=== PATIENT | male | born 1960 | race Caucasian/White ===

== ENCOUNTER 2023-05-06 05:41 | Inpatient (IN) | payer MEDICAID ==
[~2023-05-06] VITALS: Ht 177.8 cm; Wt 83.0 kg
[2023-05-06 06:59] LABS: Urine Bacteria NONE SEEN /hpf (None Seen); Urine Blood 3+ /uL (Negative); Urine Clarity HAZY (Clear); Urine Color PINK (Yellow); Urine Protein, UAD 1+ (Negative); Urine Specific Gravity 1.025 (1.001-1.035); Urine WBC 4 /hpf (0 - 3)
[2023-05-06 07:17] LABS: Basophils # (auto) 0 10 ^3/uL (0-0.2); Basophils % (auto) 0.1 % (0.0-2.0); Eosinophils # (auto) 0 10 ^3/uL (0-0.8); Hematocrit 44.1 % (41.0-53.0); Hemoglobin 15.6 g/dL (13.5-17.5); Lymphocytes # (auto) 0.6 10 ^3/uL (0.4-5.4); Lymphocytes % (auto) 6.5 % (10.0-50.0); Mean Corpuscular Hemoglobin 31.4 pg (28.0-32.0); Mean Corpuscular Hgb Conc. 35.3 g/dL (32.0-36.0); Monocytes # (auto) 0.2 10 ^3/uL (0-1.3); Monocytes % (auto) 2.3 % (0.0-12.0); Neutrophils # (auto) 8.6 10 ^3/uL (1.6-8.6); Neutrophils % (auto) 91.1 % (37.0-80.0); Nucleated Red Blood Cells % 0.1 %; Red Blood Cells 4.96 10^6/uL (4.5-5.90); Red Cell Distribution Width 13.6 % (11.8-14.3); White Blood Cell 9.4 10^3/uL (4.4-10.8)
[2023-05-06 07:48] LABS: Alanine Aminotransferase 24 U/L (7-40); Albumin 4.6 g/dL (3.2-4.8); Alkaline Phosphatase 78 U/L (46-116); Anion Gap 6 (5-15); Aspartate Aminotransferase 13 U/L (13-40); BUN/Creatinine Ratio 16.5 (10.0-20.0); Blood Urea Nitrogen 14 mg/dL (9-23); Calcium 9.6 mg/dL (8.7-10.4); Carbon Dioxide 26 mmol/L (20-30); Chloride 103 mmol/L (98-107); Glucose 154 mg/dL (74-106); Lipase 52 U/L (12-53); Potassium 3.9 mmol/L (3.5-5.1); Sodium 135 mmol/L (136-145); Total Protein 7.1 g/dL (5.7-8.2)
[2023-05-06] MEDS ORDERED: KETOROLAC TROMETH 30 MG/ML 1ML VIAL IV ONE (08:30)
[2023-05-06] MEDS ORDERED: SODIUM CHLORIDE 0.9% 1,000 ML IV ONE ×2 (08:30)
[2023-05-06] MEDS ORDERED: KETOROLAC TROMETH 60MG/2ML VIAL ONE (08:55)
[2023-05-06] MEDS ORDERED: TAMSULOSIN HYDROCHLORIDE 0.4 MG CAP PO ONE (09:00)
[2023-05-06] MEDS ORDERED: DOCUSATE SOD 100 MG CAP PO PRN (12:15)
[2023-05-06] MEDS ORDERED: ONDANSETRON HCL 4 MG/2 ML VIAL IV PRN (12:15)
[2023-05-06] MEDS ORDERED: KETOROLAC TROMETH 30 MG/ML 1ML VIAL IV PRN (12:30)
[2023-05-06] MEDS: MORPHINE SULFATE INJ 2 MG/ml SYRG IV PRN ×2 (14:43→21:28)
[2023-05-06] MEDS: metroNIDAZOLE 500MG/100ML 100 ML IV SCH ×2 (14:45→21:27)
[2023-05-06] MEDS ORDERED: DEXTROSE (50%) 50ML SYRG IV PRN (16:15)
[2023-05-06] MEDS: InsuLIN REG 1unit/0.01ml Soln (100units/ml) SC SCH ×2 (17:00→21:28)
[2023-05-06] MEDS: ACCU-CHEK COMFORT CURVE STRIP VI SCH ×2 (17:26→21:28)
[2023-05-06] MEDS: SODIUM CHLORIDE 0.9% 1,000 ML IV SCH ×2 (17:41→20:35)
[2023-05-06] MEDS: TAMSULOSIN HYDROCHLORIDE 0.4 MG CAP PO SCH (17:54)
[2023-05-06] MEDS ORDERED: TAMSULOSIN HYDROCHLORIDE 0.4 MG CAP PO SCH (18:00)
[2023-05-06 18:25] VITALS: RESP 18
[2023-05-07] MEDS: SODIUM CHLORIDE 0.9% 1,000 ML IV SCH ×3 (04:38→23:21)
[2023-05-07 04:58] LABS: Basophils # (auto) 0 10 ^3/uL (0-0.2); Eosinophils # (auto) 0 10 ^3/uL (0-0.8); Hematocrit 41.7 % (41.0-53.0); Hemoglobin 14.5 g/dL (13.5-17.5); Lymphocytes # (auto) 0.8 10 ^3/uL (0.4-5.4); Lymphocytes % (auto) 10.5 % (10.0-50.0); Mean Corpuscular Hemoglobin 31.1 pg (28.0-32.0); Mean Corpuscular Hgb Conc. 34.6 g/dL (32.0-36.0); Mean Corpuscular Volume 89.9 fL (80.0-100.0); Monocytes # (auto) 1.2 10 ^3/uL (0-1.3); Monocytes % (auto) 15.2 % (0.0-12.0); Neutrophils # (auto) 5.7 10 ^3/uL (1.6-8.6); Neutrophils % (auto) 74.3 % (37.0-80.0); Red Blood Cells 4.64 10^6/uL (4.5-5.90); Red Cell Distribution Width 13.5 % (11.8-14.3); White Blood Cell 7.7 10^3/uL (4.4-10.8)
[2023-05-07 05:22] LABS: Alanine Aminotransferase 20 U/L (7-40); Alkaline Phosphatase 62 U/L (46-116); Anion Gap 5 (5-15); Aspartate Aminotransferase 14 U/L (13-40); BUN/Creatinine Ratio 8.8 (10.0-20.0); Blood Urea Nitrogen 12 mg/dL (9-23); Calcium 9.1 mg/dL (8.7-10.4); Carbon Dioxide 28 mmol/L (20-30); Chloride 109 mmol/L (98-107); Glucose 122 mg/dL (74-106); Potassium 4.3 mmol/L (3.5-5.1); Sodium 142 mmol/L (136-145)
[2023-05-07 05:23] LABS: Bilirubin, Total 1.7 mg/dL (0.2-1.0); Total Protein 6.2 g/dL (5.7-8.2)
[2023-05-07] MEDS: metroNIDAZOLE 500MG/100ML 100 ML IV SCH ×3 (06:12→23:21)
[2023-05-07] MEDS: InsuLIN REG 1unit/0.01ml Soln (100units/ml) SC SCH ×4 (07:35→22:00)
[2023-05-07] MEDS: ACCU-CHEK COMFORT CURVE STRIP VI SCH ×4 (07:35→23:24)
[2023-05-07 07:45] VITALS: O2SAT 98
[2023-05-07] MEDS: cefTRIAXone 1GM/50ML D5W 50 ML IV SCH (09:04)
[2023-05-07] MEDS: MORPHINE SULFATE INJ 2 MG/ml SYRG IV PRN ×3 (09:06→21:48)
[2023-05-07] MEDS: TAMSULOSIN HYDROCHLORIDE 0.4 MG CAP PO SCH (18:02)
[2023-05-07 19:15] VITALS: PULSE 80; RESP 16; O2SAT 96
[2023-05-07 22:00] VITALS: BP 135/80; PULSE 63; RESP 18; TEMP 99.8; O2SAT 96
[2023-05-07 22:13] VITALS: BP 135/80; PULSE 63; RESP 18; TEMP 99.8; O2SAT 96
[2023-05-08] VITALS (7 sets, daily range): BP systolic 103–148; BP diastolic 61–88; PULSE 19–64; RESP 17–19; TEMP 97.8–98.5; O2SAT 95–98
[2023-05-08] MEDS: MORPHINE SULFATE INJ 2 MG/ml SYRG IV PRN ×3 (04:53→15:13)
[2023-05-08] MEDS: metroNIDAZOLE 500MG/100ML 100 ML IV SCH ×3 (05:33→22:19)
[2023-05-08] MEDS: SODIUM CHLORIDE 0.9% 1,000 ML IV SCH ×3 (05:55→22:35)
[2023-05-08] MEDS: InsuLIN REG 1unit/0.01ml Soln (100units/ml) SC SCH ×4 (06:16→22:00)
[2023-05-08] MEDS: ACCU-CHEK COMFORT CURVE STRIP VI SCH ×4 (06:17→22:29)
[2023-05-08 06:33] LABS: Anion Gap 6 (5-15); Calcium 8.7 mg/dL (8.7-10.4); Carbon Dioxide 25 mmol/L (20-30); Chloride 108 mmol/L (98-107); Potassium 3.7 mmol/L (3.5-5.1); Sodium 139 mmol/L (136-145)
[2023-05-08 06:35] LABS: Basophils # (auto) 0 10 ^3/uL (0-0.2); Basophils % (auto) 0.2 % (0.0-2.0); Eosinophils # (auto) 0 10 ^3/uL (0-0.8); Hematocrit 38.7 % (41.0-53.0); Hemoglobin 13.8 g/dL (13.5-17.5); Lymphocytes % (auto) 10.5 % (10.0-50.0); Mean Corpuscular Hemoglobin 31.9 pg (28.0-32.0); Mean Corpuscular Hgb Conc. 35.6 g/dL (32.0-36.0); Mean Corpuscular Volume 89.6 fL (80.0-100.0); Monocytes # (auto) 1.1 10 ^3/uL (0-1.3); Monocytes % (auto) 11.5 % (0.0-12.0); Neutrophils # (auto) 7.6 10 ^3/uL (1.6-8.6); Neutrophils % (auto) 77.8 % (37.0-80.0); Red Blood Cells 4.32 10^6/uL (4.5-5.90); Red Cell Distribution Width 13.6 % (11.8-14.3); White Blood Cell 9.8 10^3/uL (4.4-10.8)
[2023-05-08 06:39] LABS: BUN/Creatinine Ratio 7.5 (10.0-20.0); Blood Urea Nitrogen 10 mg/dL (9-23); Glucose 119 mg/dL (74-106)
[2023-05-08 07:25] LABS: INR 1.21 (0.9-1.15); Partial Thromboplastin Time 31.6 SEC (24.5-34.5); Prothrombin Time 12.5 sec (9.3-11.8)
[2023-05-08] MEDS: cefTRIAXone 1GM/50ML D5W 50 ML IV SCH (09:52)
[2023-05-08] MEDS ORDERED: PROPOFOL 10 MG/ML 20 ML IV ONE (18:00)
[2023-05-08] MEDS: TAMSULOSIN HYDROCHLORIDE 0.4 MG CAP PO SCH (18:00)
[2023-05-08] MEDS ORDERED: fentaNYL CITRATE 100 MCG/2 ML VL ONE (18:01)
[2023-05-08] MEDS ORDERED: CIPROFLOXACIN 400MG/200ML 200 ML IV ONE (18:36)
[2023-05-08] MEDS ORDERED: IOHEXOL 300 MG/ML 100ML BOTTLE IJ ONE (18:37)
[2023-05-08] MEDS ORDERED: ePHEDrine SULFATE 50 MG/ML AMP ONE (19:43)
[2023-05-08] MEDS ORDERED: KETOROLAC TROMETH 60MG/2ML VIAL ONE (20:30)
[2023-05-08] MEDS ORDERED: MANNITOL FTV 25% 12.5 GM/50 ML 50 ML IV ONE (20:45)
[2023-05-08] MEDS ORDERED: HYDROmorphone HCL 2 MG/ML VL/or syr IV PRN (21:00)
[2023-05-08] MEDS ORDERED: MEPERIDINE HCL (25 MG/ML) 1ML VIAL IV PRN (21:00)
[2023-05-08] MEDS ORDERED: ONDANSETRON HCL 4 MG/2 ML VIAL IV PRN (21:00)
[2023-05-09] MEDS: SODIUM CHLORIDE 0.9% 1,000 ML IV SCH ×2 (04:15→15:15)
[2023-05-09 05:00] VITALS: BP 104/65; PULSE 64; RESP 18; TEMP 97.6; O2SAT 9
[2023-05-09] MEDS: metroNIDAZOLE 500MG/100ML 100 ML IV SCH ×2 (05:39→14:00)
[2023-05-09] MEDS: InsuLIN REG 1unit/0.01ml Soln (100units/ml) SC SCH ×2 (06:02→11:30)
[2023-05-09] MEDS: ACCU-CHEK COMFORT CURVE STRIP VI SCH ×2 (06:03→11:30)
[2023-05-09 06:19] LABS: Calcium 8.3 mg/dL (8.7-10.4); Chloride 110 mmol/L (98-107); Potassium 3.6 mmol/L (3.5-5.1); Sodium 143 mmol/L (136-145)
[2023-05-09 06:20] LABS: Anion Gap 7 (5-15); Carbon Dioxide 26 mmol/L (20-30)
[2023-05-09 06:25] LABS: BUN/Creatinine Ratio 12.2 (10.0-20.0); Blood Urea Nitrogen 11 mg/dL (9-23); Glucose 102 mg/dL (74-106)
[2023-05-09 06:43] LABS: Basophils # (auto) 0 10 ^3/uL (0-0.2); Basophils % (auto) 0.1 % (0.0-2.0); Eosinophils # (auto) 0 10 ^3/uL (0-0.8); Eosinophils % (auto) 0.3 % (0.0-7.0); Hematocrit 34.9 % (41.0-53.0); Hemoglobin 12.4 g/dL (13.5-17.5); Lymphocytes # (auto) 1.2 10 ^3/uL (0.4-5.4); Lymphocytes % (auto) 15.9 % (10.0-50.0); Mean Corpuscular Hemoglobin 31.8 pg (28.0-32.0); Mean Corpuscular Hgb Conc. 35.4 g/dL (32.0-36.0); Mean Corpuscular Volume 89.7 fL (80.0-100.0); Monocytes # (auto) 1.1 10 ^3/uL (0-1.3); Monocytes % (auto) 14.6 % (0.0-12.0); Neutrophils # (auto) 5.1 10 ^3/uL (1.6-8.6); Neutrophils % (auto) 69.1 % (37.0-80.0); Red Blood Cells 3.89 10^6/uL (4.5-5.90); Red Cell Distribution Width 13.6 % (11.8-14.3); White Blood Cell 7.3 10^3/uL (4.4-10.8)
[2023-05-09 08:00] VITALS: PULSE 97; RESP 20; O2SAT 95
[2023-05-09 09:00] VITALS: BP 102/59; PULSE 97; RESP 20; TEMP 98.2; O2SAT 95
[2023-05-09] MEDS: cefTRIAXone 1GM/50ML D5W 50 ML IV SCH (10:59)
[2023-05-09] MEDS ORDERED: LEVO500T91 PO (11:39)
[2023-05-09] MEDS ORDERED: METR-344 PO (11:39)
[2023-05-09 13:00] VITALS: BP 95/56; PULSE 58; RESP 16; TEMP 98.1; O2SAT 96
[2023-05-09 14:40] VITALS: BP 95/56; PULSE 58; RESP 16; TEMP 98.1; O2SAT 96
== END 2023-05-09 15:30 | disposition home or self-care (01) | DRG 465 ==
LOC: ER 05:41 → OVERFLOW 12:10 → WEST WING 05-07 21:10
PROVIDERS: ADMIT Nurse Practitioner Family; ATTEND Internal Medicine
PROC: 0T778DZ Dilation of Left Ureter with Intraluminal Device, Via Natural or Artificial Opening Endoscopic (ICD-10-PCS; principal; 2023-05-08 19:21)
PROC: 0TF7XZZ Fragmentation in Left Ureter, External Approach (ICD-10-PCS; 2023-05-08 19:21)
DX: N13.2 Hydronephrosis with renal and ureteral calculous obstruction (principal); N17.0 Acute kidney failure with tubular necrosis; E27.8 Other specified disorders of adrenal gland; E87.1 Hypo-osmolality and hyponatremia; K52.9 Noninfective gastroenteritis and colitis, unspecified
CPT/HCPCS: 36415; 71045; 74176; 80048; 80053; 81001; 82962; 83036; 83605; 83690; 85025; 85610; 85730; 86850; 86900; 86901; 87040; 93005; G0378; J0696; J1885; J2405; J2704; J3490

== ENCOUNTER 2023-07-12 07:11 | Emergency (ER) | payer MEDICAID ==
[~2023-07-12] VITALS: Ht 177.8 cm; Wt 87.2 kg
[~2023-07-12 07:11] MED LIST: LEVO500T91 PO; METR-344 PO
[2023-07-12] MEDS ORDERED: SODIUM CHLORIDE 0.9% 1,000 ML IV ONE (12:30)
[2023-07-12 13:00] LABS: Basophils # (auto) 0 10 ^3/uL (0-0.2); Basophils % (auto) 0.5 % (0.0-2.0); Eosinophils # (auto) 0 10 ^3/uL (0-0.8); Eosinophils % (auto) 0.3 % (0.0-7.0); Hematocrit 47.1 % (41.0-53.0); Hemoglobin 16.2 g/dL (13.5-17.5); Lymphocytes # (auto) 1.8 10 ^3/uL (0.4-5.4); Lymphocytes % (auto) 26.4 % (10.0-50.0); Mean Corpuscular Hgb Conc. 34.3 g/dL (32.0-36.0); Mean Corpuscular Volume 90.5 fL (80.0-100.0); Monocytes # (auto) 0.5 10 ^3/uL (0-1.3); Monocytes % (auto) 7.5 % (0.0-12.0); Neutrophils # (auto) 4.5 10 ^3/uL (1.6-8.6); Neutrophils % (auto) 65.3 % (37.0-80.0); Nucleated Red Blood Cells % 0.2 %; Red Blood Cells 5.21 10^6/uL (4.5-5.90); Red Cell Distribution Width 13.6 % (11.8-14.3); White Blood Cell 6.8 10^3/uL (4.4-10.8)
[2023-07-12 14:00] LABS: Alanine Aminotransferase 30 U/L (7-40); Alkaline Phosphatase 89 U/L (46-116); Calcium 9.3 mg/dL (8.7-10.4); Carbon Dioxide 26 mmol/L (20-30); Chloride 105 mmol/L (98-107)
[2023-07-12 14:01] LABS: Albumin 4.5 g/dL (3.2-4.8); Anion Gap 7 (5-15); Aspartate Aminotransferase 20 U/L (13-40); BUN/Creatinine Ratio 9.2 (10.0-20.0); Bilirubin, Total 0.6 mg/dL (0.2-1.0); Blood Urea Nitrogen 7 mg/dL (9-23); Glucose 99 mg/dL (74-106); Lipase 54 U/L (12-53); Magnesium 2.2 mg/dL (1.6-2.6); Potassium 4.1 mmol/L (3.5-5.1); Sodium 138 mmol/L (136-145)
[2023-07-12] MEDS ORDERED: BACDST PO (16:00)
[2023-07-12] MEDS ORDERED: DICL50TA2 PO (16:00)
[2023-07-12 17:08] VITALS: BP 147/91; PULSE 80; RESP 18; TEMP 98.6; O2SAT 96
== END 2023-07-12 17:09 | disposition home or self-care (01) ==
LOC: ER 07:11
DX: R10.9 Unspecified abdominal pain (principal); Z87.891 Personal history of nicotine dependence; Z79.2 Long term (current) use of antibiotics; Z79.899 Other long term (current) drug therapy
CPT/HCPCS: 36415; 74176; 80053; 83690; 83735; 85025